=== PATIENT | male | born 1945 | race Caucasian/White ===

== ENCOUNTER 2019-01-09 10:51 | Outpatient (REF) | payer OTHER, SELFPAY ==
[2019-01-09 19:41] LABS: ALT 29 U/L (12-78); AST 23 U/L (15-37); Albumin 4.1 g/dL (3.4-5.0); Alkaline Phosphatase 96 U/L (46-116); Amylase 72 U/L (25-115); Anion Gap 9.4 mmol/L (3-11); BUN 15 mg/dL (7-18); Bilirubin, Total 0.7 mg/dL (0.2-1.0); CO2 29.6 mmol/L (21.0-32.0); CREATININE 1.24 mg/dL (0.70-1.30); Calcium 9.7 mg/dL (8.5-10.1); Chloride 103 mmol/L (98-107); Glucose 87 mg/dL (70-100); Lipase 171 U/L (73-393); NT-proBNP 38 pg/mL; Sodium 142 mmol/L (136-145); Total Protein 7.3 g/dL (6.4-8.2)
== END 2019-01-09 11:11 ==
LOC: NCHCN 10:51
PROVIDERS: PCP Nurse Practitioner Family; Visit Provider Nurse Practitioner Family
DX: R06.02 Shortness of breath (principal); R14.0 Abdominal distension (gaseous)
CPT/HCPCS: 80053; 83690; 82150; 83880

== ENCOUNTER 2019-01-23 11:59 | Outpatient (REF) | payer OTHER, SELFPAY ==
[2019-01-23 19:18] LABS: Cholesterol 177 mg/dL (50-200); HDL Cholesterol 32 mg/dL (40-60); LDL CHOLESTEROL 102 mg/dL (<100); Triglyceride 339 mg/dL (30-150)
== END 2019-01-23 12:19 ==
LOC: NCHCN 11:59
PROVIDERS: PCP Nurse Practitioner Family; Visit Provider Nurse Practitioner Family
DX: I50.9 Heart failure, unspecified (principal); F17.200 Nicotine dependence, unspecified, uncomplicated; Z13.220 Encounter for screening for lipoid disorders
CPT/HCPCS: 80061; 83721

== ENCOUNTER 2019-03-19 21:50 | Outpatient (REF) | payer OTHER, SELFPAY ==
--- NOTE | 2019-03-19 16:00 | PAPNONF_PTH ---
PATIENT: Moris Jarvis LOC: [facility] U#:[id number] AGE/SX: 73/M ROOM: RE03/19/[address]: Guicho Busch : 1945 BED: DIS: 03/19/2019 SPEC #: [id number] RECD: 03/20/19 12:56 STATUS: CYNDY REQ #: [id number] DELFINA: 03/19/19 16:[address]: Guicho Busch DEPT: [facility] Cytology RECD BY: Stacy Hawley Tissues: 1 - BODY FLUID CYTO(SPUTUM/URINE)UV Procedures: BODY FLUID CYTO(URINE/SPUTUM) Comments: [id number] (TOTAL VOLUME = 80 ml's) (40 ml'S URINE & 40 ml's CYTOLYT ADDED IN 2 CONTAINERS)
== END 2019-03-19 22:10 ==
LOC: NCHCN 21:50
PROVIDERS: PCP Internal Medicine; Visit Provider Internal Medicine
DX: R31.9 Hematuria, unspecified (principal)
CPT/HCPCS: 87086; 88104

== ENCOUNTER 2020-02-20 15:29 | Outpatient (REF) | payer OTHER, SELFPAY ==
[2020-02-20 19:20] LABS: CREATININE 1.07 mg/dL (0.70-1.30)
== END 2020-02-20 15:49 ==
LOC: NCHCN 15:29
PROVIDERS: PCP Internal Medicine; Visit Provider Nurse Practitioner Family
DX: I48.91 Unspecified atrial fibrillation (principal)
CPT/HCPCS: 82565

== ENCOUNTER 2020-08-06 09:17 | Outpatient (REF) | payer OTHER, SELFPAY ==
[2020-08-06 19:29] LABS: ALT 25 U/L (16-63); AST 18 U/L (15-37); Albumin 3.8 g/dL (3.4-5.0); Alkaline Phosphatase 76 U/L (46-116); Anion Gap 6.4 mmol/L (3-11); BUN 15 mg/dL (7-18); CO2 27.6 mmol/L (21.0-32.0); CREATININE 1.07 mg/dL (0.70-1.30); Calcium 8.6 mg/dL (8.5-10.1); Calculated LDL 97 mg/dL (<100); Chloride 106 mmol/L (98-107); Cholesterol 152 mg/dL (<200); Glucose 96 mg/dL (74-106); HDL Cholesterol 38 mg/dL (40-60); Potassium 3.9 mmol/L (3.5-5.1); Sodium 140 mmol/L (136-145); Total Protein 6.8 g/dL (6.4-8.2); Triglyceride 88 mg/dL (<150)
[2020-08-06 22:55] LABS: Bilirubin, Total 0.6 mg/dL (0.2-1.0)
== END 2020-08-06 09:37 ==
LOC: NCHCN 09:17
PROVIDERS: PCP Internal Medicine; Visit Provider Physician Assistant
DX: I48.91 Unspecified atrial fibrillation (principal); I42.9 Cardiomyopathy, unspecified
CPT/HCPCS: 80053; 80061

== ENCOUNTER 2020-11-17 18:44 | Outpatient (REF) | payer OTHER, SELFPAY ==
[2020-11-19 15:28] LABS: COVID-19 RT-PCR Result NEGATIVE (Negative)
== END 2020-11-17 19:04 ==
LOC: NCHCN 18:44
PROVIDERS: PCP Internal Medicine; Visit Provider Internal Medicine
DX: Z20.822 Contact with and (suspected) exposure to COVID-19 (principal)
CPT/HCPCS: U0003

== ENCOUNTER 2021-05-02 14:57 | Outpatient (REF) | payer OTHER, SELFPAY | END 2021-05-02 14:58 | disposition home or self-care (01) | LOC: NCHCN 14:57 | PROVIDERS: PCP Internal Medicine; Visit Provider Nurse Practitioner Family | DX: N30.00 Acute cystitis without hematuria (principal) | CPT/HCPCS: 87086 ==

== ENCOUNTER 2021-06-28 15:46 | Outpatient (REF) | payer OTHER, SELFPAY ==
[2021-06-30 17:00] LABS: COVID-19 RT-PCR UVMMC Result Negative (Negative)
== END 2021-06-28 15:47 | disposition home or self-care (01) ==
LOC: NCHCN 15:46
PROVIDERS: PCP Internal Medicine; Visit Provider Nurse Practitioner Family
DX: Z20.822 Contact with and (suspected) exposure to COVID-19 (principal); J06.9 Acute upper respiratory infection, unspecified
CPT/HCPCS: U0003

== ENCOUNTER 2021-11-01 13:44 | Outpatient (REF) | payer OTHER, SELFPAY ==
[2021-11-01 20:45] LABS: ALT 23 U/L (16-63); AST 17 U/L (15-37); Albumin 3.9 g/dL (3.4-5.0); Alkaline Phosphatase 81 U/L (46-116); Anion Gap 9.5 mmol/L (3-11); BUN 19 mg/dL (7-18); Bilirubin, Total 0.6 mg/dL (0.2-1.0); CO2 27.5 mmol/L (21.0-32.0); CREATININE 1.2 mg/dL (0.70-1.30); Calcium 9.1 mg/dL (8.5-10.1); Chloride 102 mmol/L (98-107); Estimated GFR 59.18 (mL/min/1.73m2); Glucose 91 mg/dL (74-106); Potassium 4.4 mmol/L (3.5-5.1); Sodium 139 mmol/L (136-145); Total Protein 7.3 g/dL (6.4-8.2)
== END 2021-11-01 13:45 | disposition home or self-care (01) ==
LOC: NCHCN 13:44
PROVIDERS: PCP Internal Medicine; Visit Provider Nurse Practitioner Family
DX: E78.5 Hyperlipidemia, unspecified (principal); I42.9 Cardiomyopathy, unspecified
CPT/HCPCS: 80053

== ENCOUNTER 2022-10-26 11:11 | Outpatient (REF) | payer OTHER, SELFPAY ==
[2022-10-26 20:32] LABS: Anion Gap 6.3 mmol/L (3-11); BUN 16 mg/dL (7-18); CO2 26.7 mmol/L (21.0-32.0); CREATININE 1.2 mg/dL (0.70-1.30); Calcium 8.8 mg/dL (8.5-10.1); Chloride 107 mmol/L (98-107); Estimated GFR 63.07 (mL/min/1.73m2); Glucose 91 mg/dL (74-106); Potassium 4.4 mmol/L (3.5-5.1); Sodium 140 mmol/L (136-145)
== END 2022-10-26 11:12 | disposition home or self-care (01) ==
LOC: NCHCN 11:11
PROVIDERS: PCP Internal Medicine; Visit Provider Nurse Practitioner Family
DX: I25.10 Atherosclerotic heart disease of native coronary artery without angina pectoris (principal); I42.9 Cardiomyopathy, unspecified; I48.91 Unspecified atrial fibrillation
CPT/HCPCS: 80048

== ENCOUNTER 2022-12-18 18:05 | Outpatient (REF) | payer OTHER, SELFPAY ==
[2022-12-18 20:18] LABS: Bilirubin Negative (Negative); Blood Trace-intact (Negative); Clarity Clear (Clear); Glucose Negative (Negative); Ketones Negative (Negative); Leukocyte Esterase Negative (Negative); Nitrite Negative (Negative); Urobilinogen 0.2 EU/dL (Up TO 0.2); pH 6.5 (5-8)
[2022-12-18 20:28] LABS: Bacteria Negative HPF (Negative); C & S Indicated? No; Casts Negative LPF (Negative); Crystals Negative HPF (Negative); Epithelial Cells Rare HPF (Negative); Mucus Negative (Negative); Other Cells Negative (Negative); RBC 0-2 HPF (0-2); WBC 0-2 HPF (0-5)
== END 2022-12-18 18:06 | disposition home or self-care (01) ==
LOC: NCHCN 18:05
PROVIDERS: PCP Internal Medicine; Visit Provider Nurse Practitioner Family
DX: R31.9 Hematuria, unspecified (principal)
CPT/HCPCS: 81003; 81015

== ENCOUNTER 2024-07-10 13:09 | Outpatient (REF) | payer MEDICARE, SELFPAY ==
[2024-07-10 19:41] LABS: HCT 47.1 % (40.0-50.0); HGB 15.8 g/dL (13.5-17.5); MCH 30.8 pg (27.0-33.0); MCHC 33.5 % (32.0-36.0); MCV 92 fL (80-95); Platelet Count 228 10^3/uL (130-400); RBC 5.13 10^6/uL (4.36-5.78); RDW 13.4 % (11.8-14.1); WBC 8.21 10^3/uL (4.4-10.8)
[2024-07-10 19:59] LABS: Bacteria Negative HPF (Negative); C & S Indicated? C&S Done As Ordered; Crystals Negative HPF (Negative); Epithelial Cells Negative HPF (Negative); Mucus Negative (Negative); RBC 0-2 HPF (0-2)
[2024-07-10 20:25] LABS: ALT 30 U/L (16-63); AST 22 U/L (15-37); Albumin 3.9 g/dL (3.4-5.0); Alkaline Phosphatase 97 U/L (46-116); Anion Gap 9.7 mmol/L (3-11); BUN 16 mg/dL (7-18); Bilirubin, Total 0.63 mg/dL (0.2-1.0); CO2 27.3 mmol/L (21.0-32.0); CREATININE 1.3 mg/dL (0.70-1.30); Calcium 9.5 mg/dL (8.5-10.1); Calculated LDL 34 mg/dL (<100); Chloride 104 mmol/L (98-107); Cholesterol 113 mg/dL (<200); Estimated GFR 56.58 (mL/min/1.73m2); Glucose 88 mg/dL (74-106); HDL Cholesterol 49 mg/dL (40-60); Potassium 4.1 mmol/L (3.5-5.1); Sodium 141 mmol/L (136-145); TSH 3.66 uIU/Ml (0.36-3.74); Total Protein 7.7 g/dL (6.4-8.2); Triglyceride 150 mg/dL (<150)
== END 2024-07-10 13:10 | disposition home or self-care (01) ==
LOC: NCHCN 13:09
PROVIDERS: PCP Internal Medicine; Visit Provider Internal Medicine
DX: R53.83 Other fatigue (principal)
CPT/HCPCS: 80053; 80061; 85027; 87077; 81015; 84443; 87086; 87186

== ENCOUNTER 2024-12-24 12:12 | Outpatient (REF) | payer MEDICARE, SELFPAY | END 2024-12-24 12:13 | disposition home or self-care (01) | LOC: NCHCN 12:12 | PROVIDERS: PCP Internal Medicine; Visit Provider Nurse Practitioner Family | DX: K14.3 Hypertrophy of tongue papillae (principal) | CPT/HCPCS: 87070 ==

== ENCOUNTER 2025-08-03 16:01 | Outpatient (REF) | payer MEDICARE, SELFPAY ==
[2025-08-03 19:39] LABS: ALT 24 U/L (16-63); AST 21 U/L (15-37); Albumin 3.8 g/dL (3.4-5.0); Alkaline Phosphatase 99 U/L (46-116); Anion Gap 10.3 mmol/L (3-11); BUN 20 mg/dL (7-18); Bilirubin, Total 0.7 mg/dL (0.2-1.0); CO2 24.7 mmol/L (21.0-32.0); Calcium 9.2 mg/dL (8.5-10.1); Chloride 106 mmol/L (98-107); Estimated GFR 47.36 (mL/min/1.73m2); Glucose 93 mg/dL (74-106); Potassium 4.0 mmol/L (3.5-5.1); Sodium 141 mmol/L (136-145); Total Protein 7.4 g/dL (6.4-8.2)
== END 2025-08-03 16:02 | disposition home or self-care (01) ==
LOC: NCHCN 16:01
PROVIDERS: PCP Internal Medicine; Visit Provider Nurse Practitioner Family
DX: I10 Essential (primary) hypertension (principal)
CPT/HCPCS: 80053

== ENCOUNTER 2025-08-17 20:35 | Outpatient (REF) | payer MEDICARE, SELFPAY ==
[2025-08-17 20:54] LABS: HCT 46.3 % (40.0-50.0); HGB 15.1 g/dL (13.5-17.5); MCH 31.1 pg (27.0-33.0); MCHC 32.6 % (32.0-36.0); MCV 96 fL (80-95); MPV 8.9 fL (8.0-11.0); Platelet Count 230 10^3/uL (130-400); RBC 4.85 10^6/uL (4.36-5.78); RDW 13.9 % (11.8-14.1); RDW-SD 49.4 fL; WBC 8.28 10^3/uL (4.4-10.8)
[2025-08-17 21:44] LABS: Anion Gap 9.7 mmol/L (3-11); BUN 19 mg/dL (7-18); CO2 26.3 mmol/L (21.0-32.0); Calcium 9.4 mg/dL (8.5-10.1); Chloride 104 mmol/L (98-107); Estimated GFR 51.45 (mL/min/1.73m2); Glucose 82 mg/dL (74-106); Potassium 5.3 mmol/L (3.5-5.1); Sodium 140 mmol/L (136-145)
== END 2025-08-17 20:36 | disposition home or self-care (01) ==
LOC: NCHCN 20:35
PROVIDERS: PCP Internal Medicine; Visit Provider Nurse Practitioner Family
DX: R79.89 Other specified abnormal findings of blood chemistry (principal); I48.91 Unspecified atrial fibrillation
CPT/HCPCS: 80048; 85027

== ENCOUNTER 2025-09-02 09:56 | Outpatient (REF) | payer MEDICARE, SELFPAY ==
[2025-09-02 22:02] LABS: C & S Indicated? No; WBC Negative HPF (0-5)
== END 2025-09-02 09:57 | disposition home or self-care (01) ==
LOC: NCHCN 09:56
PROVIDERS: PCP Internal Medicine; Visit Provider Nurse Practitioner Family
DX: Z87.898 Personal history of other specified conditions (principal)
CPT/HCPCS: 81015